=== PATIENT | female | born 1965 ===

== ENCOUNTER 2021-04-26 16:36 | Emergency (ER) | payer MEDICAID ==
[~2021-04-26] VITALS: Ht 152.4 cm; Wt 82.6 kg
[2021-04-26 17:02] VITALS: BP 133/73
== END 2021-04-26 17:46 | disposition left against medical advice (07) ==
LOC: ER 16:36
DX: R10.11 Right upper quadrant pain (principal); R11.2 Nausea with vomiting, unspecified; R19.7 Diarrhea, unspecified; Z53.21 Procedure and treatment not carried out due to patient leaving prior to being seen by health care provider

== ENCOUNTER 2021-05-03 04:01 | Emergency (ER) | payer MEDICAID ==
[~2021-05-03] VITALS: Ht 152.4 cm; Wt 81.6 kg
[2021-05-03 05:21] LABS: Basophils # (auto) 0.1 10 ^3/uL (0-0.2); Basophils % (auto) 1.4 % (0.0-2.0); Eosinophils # (auto) 0.1 10 ^3/uL (0-0.8); Eosinophils % (auto) 1.1 % (0.0-7.0); Hematocrit 41.8 % (36.0-46.0); Hemoglobin 14.1 g/dL (12.2-16.2); Lymphocytes # (auto) 1.4 10 ^3/uL (0.4-5.4); Mean Corpuscular Hemoglobin 28.1 pg (28.0-32.0); Mean Corpuscular Hgb Conc. 33.7 g/dL (32.0-36.0); Mean Corpuscular Volume 83.2 fL (80.0-100.0); Monocytes % (auto) 10.9 % (0.0-12.0); Neutrophils % (auto) 72.6 % (37.0-80.0); Nucleated Red Blood Cells % 0.1 %; Red Blood Cells 5.02 10^6/uL (4.0-5.20); Red Cell Distribution Width 13.6 % (11.8-14.3); White Blood Cell 9.6 10^3/uL (4.4-10.8)
[2021-05-03] MEDS ORDERED: IOHEXOL 300 MG/ML 100ML BOTTLE IJ ONE (05:25)
[2021-05-03 05:41] LABS: INR 1.01 (0.9-1.15)
[2021-05-03 05:55] LABS: Chloride 106 mmol/L (98-107); Potassium 3.8 mmol/L (3.5-5.1); Sodium 137 mmol/L (136-145)
[2021-05-03 06:09] LABS: Alanine Aminotransferase 117 U/L (13-56); Albumin 3.1 g/dL (3.4-5.0); Alkaline Phosphatase 542 U/L (45-117); Anion Gap 6 (5-15); Aspartate Aminotransferase 64 U/L (15-37); BUN/Creatinine Ratio 11.8; Bilirubin, Total 0.6 mg/dL (0.2-1.0); Blood Urea Nitrogen 6 mg/dL (7-18); Calcium 8.8 mg/dL (8.5-10.1); Carbon Dioxide 25 mmol/L (21-32); GFR African American 162 mL/min; GFR Non-African American 134 mL/min; Glucose 85 mg/dL (74-106); Lipase 117 U/L (73-393); Total Protein 8.1 g/dL (6.4-8.2)
[2021-05-03] MEDS ORDERED: fentaNYL CITRATE 100 MCG/2 ML VL IV ONE (06:15)
[2021-05-03] MEDS ORDERED: ONDANSETRON HCL 4 MG/2 ML VIAL IV ONE ×2 (06:15→10:30)
[2021-05-03 06:30] VITALS: BP 136/80
[2021-05-03 08:09] LABS: Urine Bacteria NONE SEEN /hpf (None Seen); Urine Blood Negative /uL (Negative); Urine Budding Yeast OCCASIONAL /hpf (None Seen); Urine WBC 1 /hpf (0 - 5)
[2021-05-03 08:13] LABS: Urine Specific Gravity > 1.050 (1.001-1.035)
[2021-05-03] MEDS ORDERED: cefTRIAXone 1GM/50ML D5W 50 ML IV ONE (10:30)
[2021-05-03] MEDS ORDERED: MORPHINE SULFATE 4 MG/ML SYR/VIAL IV ONE (10:30)
== END 2021-05-03 14:12 | disposition left against medical advice (07) ==
LOC: ER 04:01
DX: R10.13 Epigastric pain (principal); R11.2 Nausea with vomiting, unspecified; R10.11 Right upper quadrant pain; R19.7 Diarrhea, unspecified; Z90.710 Acquired absence of both cervix and uterus; Z20.822 Contact with and (suspected) exposure to COVID-19
CPT/HCPCS: 36415; 74177; 76705; 80053; 81001; 83605; 83690; 84484; 85025; 85610; 87426; 96365; 96375; 96376; 99285; J0696; J2270; J2405; J3010; Q9967